=== PATIENT | female | born 1975 | race Caucasian/White ===

== ENCOUNTER 2022-12-03 10:16 | Outpatient (CLI) | payer OTHER, SELFPAY ==
--- NOTE | 2022-12-03 10:28 | ECG_ITS ---
Measurements Intervals [place] Rate: 68 P: 25 MD: 151 QRS: 12 QRSD: 97 T: -4 QT: 397 QTc: 424 Interpretive Statements SINUS RHYTHM NONSPECIFIC T-WAVE ABNORMALITY- ANT/INF LEADS BASELINE ARTIFACT- I, III, AVR, AVL, AVF, V1-V6 BORDERLINE ECG NO PREVIOUS ECG AVAILABLE FOR COMPARISON Electronically Signed On 12-03-2022 10:44:17 CDT by Paul Singleton D.O.
[2022-12-03 10:45] LABS: Hematocrit 43.4 % (37.0-47.0); Hemoglobin 14.2 g/dL (12.0-15.0)
[2022-12-03 11:01] LABS: Anion Gap 9 mmol/L (8-16); Blood Urea Nitrogen 13 mg/dL (7-17); Calcium 9.2 mg/dL (8.4-10.2); Carbon Dioxide 30 mmol/L (22-30); Chloride 99 mmol/L (98-107); Estimated Glomerular Filt Rate > 60; Glucose 103 mg/dL (65-110); Potassium 3.5 mmol/L (3.4-5.0); Sodium 138 mmol/L (137-145)
== END 2022-12-03 10:17 | disposition home or self-care (01) ==
PROVIDERS: Anesthesiology; PCP Family Medicine; Visit Provider Obstetrics & Gynecology Gynecology
DX: Z01.812 Encounter for preprocedural laboratory examination (principal); Z01.810 Encounter for preprocedural cardiovascular examination; D25.9 Leiomyoma of uterus, unspecified; I10 Essential (primary) hypertension; T50.2X5A Adverse effect of carbonic-anhydrase inhibitors, benzothiadiazides and other diuretics, initial encounter; R94.31 Abnormal electrocardiogram [ECG] [EKG]
CPT/HCPCS: 36415; 80048; 85014; 85018; 86850; 86900; 86901; 93005

== ENCOUNTER 2022-12-07 10:21 | Inpatient (IN) | payer OTHER, SELFPAY ==
[2022-11-27 16:11] VITALS: BMI 41.5
--- NOTE | 2022-11-27 16:49 | PC.NURSE ---
Report to the Outpatient Waiting Room, entrance under the green pavilion located off [facility], at 0600 on 12-07-22. Planned Procedure Time: 0730. Time changes happen often and if your time is changed the preop area will call you the afternoon before. - You and your visitor will be asked to self-screen and do not enter if you have any COVID symptoms. - A mask is optional within the hospital at this time. Patients may have clear liquids (water, carbonated beverages, clear teas, apple juice) until 3 hours prior to surgery with a maximum of 20 ounces. 0430 - No food from midnight until time of surgery - Infants may have breast milk until 4 hours before surgery, infant formula 6 hours prior to surgery. - Children will be allowed to drink immediately following surgery. If applicable, please bring a bottle or sippy cup to assist with drinking. Juice, water, soda, and popsicles are readily available. For infants on formula, please bring formula the day of surgery. Pacifiers are allowed. Take the following medications with a SIP of water the morning of surgery: levothyroxine DO NOT STOP ANY OF YOUR OTHER PRESCRIPTION MEDICATIONS PRIOR TO SURGERY ?EXCEPT THE FOLLOWING Medications to discontinue per physician: vitamins and supplements; Meloxicam per Dr. Marcos Date to take last dose: 12-04-22 Please no make-up, nail khmer, hairspray, perfume, deodorant, or body powder the day of surgery. No jewelry (including any body piercings) or valuables the day of surgery, leave them at home. Please take a shower or bath the night before, or the morning of, surgery with an antibacterial soap. Wear comfortable, loose fitting clothing. Children are encouraged to wear pajamas. - Jewelry must be removed prior to entering the operating room. Rings and piercings that are not removed may be cut off. - The hospital will not accept responsibility for valuables. - Please leave all valuables, including medications, at home the day of surgery. If you are going home after surgery, a licensed personal driver must drive you home. - NO public transportation without another adult if you receive anesthesia. - We recommend that an adult stay with you for 24 hours following discharge. - We also recommend that you do not drive, make important decision, drink alcoholic beverages, or take any drugs that were not prescribed by your health care provider for at least 24 hours after your discharge time. For Pediatric surgeries, we recommend two adults accompany the child home. Follow any additional instructions given to you from your surgeon. If you or anyone in your household have experienced Covid symptoms in the past week, please notify your surgeon or the nurse liaison at the phone number below for possible testing. Telephone instructions given to Sara Negron and asked if any additional questions and then verbalized understanding. Patient advised to call surgeon office or pre surgery nurse liaison [phone] if any additional questions.
[2022-12-07] VITALS (15 sets, daily range): BP systolic 127–148; BP diastolic 73–88; PULSE 51–76; RESP 12–18; TEMP 36.2–37.7; O2SAT 93–100
[2022-12-07] MEDS: KETOROLAC 15 MG/ML VIAL (*BKC) IV PUSH (06:30)
[2022-12-07] MEDS: ACETAMINOPHEN 500 MG TABLET 1000 MG PO (06:30)
[2022-12-07] MEDS: LACTATED RINGERS 1,000 ML 30 ML IV CONT ×3 (06:30→09:49)
--- NOTE | 2022-12-07 07:05 | WPDANESEPPF ---
Anes - Initial Pre Proc Eval Procedure: Operation Date: 12/07/22 07:30 Proposed Procedures p Total Abdominal Hysterectomy with Bilateral Salpingectomy - Amanda Marcos MD Date/Time: 12/07/22 07:05 Surgeon: Amanda Marcos MD Pre Op Diagnosis: Fibroid Uterus Patient Data Age: 47 Gender: F Height: 1.65 m Weight: 113.4 kg Allergies Allergy/AdvReac Type Severity Reaction Status Date / Time No Known Allergies Allergy Verified 11/27/22 15:58 Home Medications Medication Instructions Recorded Confirmed Type atorvastatin 20 mg tablet 20 mg PO DAILY 11/27/22 11/27/22 History cholecalciferol (vitamin D3) 100 100 mcg PO DAILY 11/27/22 11/27/22 History mcg (4,000 unit) capsule ferrous sulfate 325 mg (65 mg 325 mg PO DAILY 11/27/22 11/27/22 History iron) tablet hydrochlorothiazide 25 mg tablet 25 mg PO DAILY 11/27/22 11/27/22 History levothyroxine 175 mcg tablet 175 mcg PO DAILY 11/27/22 11/27/22 History meloxicam 15 mg tablet 15 mg PO DAILY PRN Pain, Mild 11/27/22 11/27/22 History metoprolol succinate 25 mg 12.5 mg PO DAILY 11/27/22 11/27/22 History tablet,extended release 24 hr Patient hx anesthesia problems: none Family hx anesthesia problems: none Results Review: All pre-operative results and documents have been reviewed as part of the pre-operative evaluation. [facility] Past Medical History Medical History (Updated 12/07/22 @ 07:05 by David Ernst MD) Hypothyroidism Morbid obesity Social History Social History Smoking packs per day: 1 Smoking cigarettes per day: 20.0 Years smoked: 10 Smoking pack-years: 10.00 Smoking status: Former smoker Tobacco type: cigarettes Second hand tobacco smoke exposure: No Smoking end date: 03/08/09 Alcohol intake: current Drinks per week: 7 Alcohol use details: glass of wine each night Substance use: never Substance use type: does not use Living arrangements: with family Spiritual care concerns: No Anes - Eval Final PreProcedure Day of Procedure 12/07/22 07:05 Patient weight: morbidly obese Heart: regular rate and rhythm Lungs: clear to auscultation Airway: Mallampati scale class II Neurological: alert and oriented Last oral intake: >/= 8 hours ASA classification: III Emergent: no Anesthetic plan: proceed Anesthesia type and monitoring: general ETT and standard monitoring Results Review: All pre-operative results and documents have been reviewed as part of the pre-operative evaluation. Informed Consent: The patient's anesthetic plan and its attendant risks and benefits were discussed with the patient/family/POA. Questions were solicited and answers provided to the satisfaction of the patient/family/POA.
--- NOTE | 2022-12-07 07:16 | WPDHPUPDATE1 ---
History and Physical Update Update Date/Time: 12/07/22 07:16 History and Physical has been reviewed, including an updated exam of the patient. There are NO changes in the patient's condition. Risks, benefits, and alternatives have been discussed and questions answered. Patient agrees to proceed with procedure.
--- NOTE | 2022-12-07 07:16 | PM.IMHP ---
H&P: HPI History of Present Illness Date/Time: 12/07/22 07:16 Chief Complaint: Fibroid uterus Narrative: The patient is a 47-year-old who presented for her annual exam in September was found to have a firm mass at the umbilicus. Pelvic ultrasound revealed uterine fibroids. The patient has had minimal symptoms over time. Her cycles are normal. She does complain of abdominal pelvic pressure. Once the mass was pointed out to the patient she does report more symptoms with pressure. She has elected to proceed with total abdominal hysterectomy and bilateral salpingectomy. Risks of infection, bleeding, injury to internal organs (bowel, bladder, ureters, ovaries), DVT, and anesthesia are reviewed. Patient voices understanding and agrees to proceed. Review of Systems Review of Systems: not repeated day of surgery; patient states no changes in status PMFSH Past Medical History Medical History (Updated 12/07/22 @ 07:20 by Amanda Marcos MD) HTN (hypertension) Hypercholesterolemia Hypothyroidism Morbid obesity BMI is 42.8 (normal spontaneous vaginal delivery) Surgical History Surgical History (Updated 12/07/22 @ 07:19 by Amanda Marcos MD) H/O left knee surgery Repair of meniscus 2021 Social History Social History Smoking packs per day: 1 Smoking cigarettes per day: 20.0 Years smoked: 10 Smoking pack-years: 10.00 Smoking status: Former smoker Tobacco type: cigarettes Second hand tobacco smoke exposure: No Smoking end date: 03/08/09 Alcohol intake: current Drinks per week: 7 Alcohol use details: glass of wine each night Substance use: never Substance use type: does not use Living arrangements: with family Spiritual care concerns: No Meds Home Medications and Allergies Home Medications Medication Instructions Recorded Confirmed Type atorvastatin 20 mg tablet 20 mg PO DAILY 11/27/22 11/27/22 History cholecalciferol (vitamin D3) 100 100 mcg PO DAILY 11/27/22 11/27/22 History mcg (4,000 unit) capsule ferrous sulfate 325 mg (65 mg 325 mg PO DAILY 11/27/22 11/27/22 History iron) tablet hydrochlorothiazide 25 mg tablet 25 mg PO DAILY 11/27/22 11/27/22 History levothyroxine 175 mcg tablet 175 mcg PO DAILY 11/27/22 11/27/22 History meloxicam 15 mg tablet 15 mg PO DAILY PRN Pain, Mild 11/27/22 11/27/22 History metoprolol succinate 25 mg 12.5 mg PO DAILY 11/27/22 11/27/22 History tablet,extended release 24 hr Allergies Allergy/AdvReac Type Severity Reaction Status Date / Time No Known Allergies Allergy Verified 12/07/22 07:20 Exam Const: General: healthy appearing and alert Orientation/consciousness: patient oriented x3 Resp: Effort & Inspection: normal respiratory effort GI: GI Palp: Yes Soft to palpation, No Tenderness to palpation present (GI) and Yes Other GI palpation findings present (Mass filling the lower half of the abdomen into the pelvis, firm) : External Female Exam: normal external appearance Speculum Exam - Vagina: normal appearance of the vagina and normal vaginal discharge Speculum Exam - Cervix: normal appearance of the cervix Bimanual exam- vagina & uterus: enlarged (Approximately 20 week size, globular, firm) Bimanual Exam- Adnexa, other: No adnexal tenderness Neuro: General: patient oriented x3 Assessment and Plan Assessment and plan (1) Fibroid uterus: Code(s): D25.9 - Leiomyoma of uterus, unspecified Status: Acute Plan Plan to proceed with total abdominal hysterectomy with bilateral salpingectomy
[2022-12-07] MEDS: ceFAZolin 2 GM/D5W 50 ML 2 GM/50 ML BAG IVPB (07:26)
--- NOTE | 2022-12-07 09:11 | W.PM.PROC2 ---
Procedure Note - Detailed Date of Procedure 12/07/22 Pre-op Diagnosis Fibroid Uterus Post-op Diagnosis Same Procedure Performed Total abdominal hysterectomy with bilateral salpingectomy Surgeon Amanda Marcos MD Anesthesia General Findings Abdominal examination under anesthesia reveals the uterus to be just above the umbilicus and filling the entire lower abdomen hip to hip. Intra-abdominal findings reveal a markedly enlarged uterus with fibroids, normal-appearing tubes, normal-appearing ovaries. Description of Procedure The patient is taken to the operating room and placed under anesthesia in the dorsal supine position. She was prepped and draped in usual sterile fashion. Intra-abdominal exam was performed and due to the exam, decision was made for a vertical skin incision. A vertical skin incision was made from the umbilicus to symphysis pubis with a scalpel and carried down to the underlying layer of fascia which was nicked in the midline. The fascial incision was extended with Spence scissors superiorly and inferior. The Ochsner was used to tent the fascia laterally and the rectus muscles are off using Metzenbaum scissors. The peritoneum was tented and entered with Metzenbaum scissors and the incision was extended laterally using blunt traction. The abdomen and pelvis are explored with the above-stated findings. The Iam is placed and the bowel packed away using moist laparotomy sponges. The distal tissue was retracted with a medium [place]. The uterus is grasped on the cornua with large peons. The round ligaments were doubly ligated with 0 Vicryl, transected, and the anterior leaf of the broad ligament incised meeting in the midline. The bladder was dissected off using a sponge stick. The [place] was replaced to retract the bladder. The utero-ovarian ligaments are isolated and a window created in the posterior leaf of the broad ligament. The pedicle was doubly clamped, transected, and suture ligated with 0 Vicryl. The uterine vessels are serially clamped, transected, and suture ligated with 0 Vicryl. The cardinal and uterosacral ligaments are serially clamped, transected, and suture ligated with 0 Vicryl. The uterosacral ligaments were tagged for future use. The vaginal cuff was entered anteriorly with the scalpel. The vaginal cuff was grasped with long Allis clamps as the specimen is amputated. The vaginal cuff was closed using 0 Vicryl in a running locked fashion incorporating the angles to the previously tagged ipsilateral uterosacral ligaments. The right angle and a bladder flap arm bleeding requiring 2 sutures 0 Vicryl. The right tube was then grasped with a Duyen, mesosalpinx is clamped with a minimally curved Z clamp, and the tube excised. The pedicles tied off using 0 Vicryl in a Irvin stitch. The identical procedure was performed on the left side. There is also a bleeding vessel at the left tubal site. This is suture ligated with a [id number]-az-[id number] suture of Vicryl. Good hemostasis is then a noted. Pelvis is then irrigated all pedicles inspected. Good hemostasis is noted at all pedicles and the vaginal cuff. The hematuria was placed between the vaginal cuff and the bladder flap. Instruments and sponges were then removed. The fascial edges were grasped with Ochsner bilaterally. The fascial incision was closed using 0 PDS in a running fashion. The subcutaneous tissues were irrigated and made hemostatic using Bovie cautery. The skin is closed using nakita. Sterile bandage was applied. Sponge, needle, and instrument counts are correct per the OR staff. Patient is awakened from anesthesia and taken to recovery in stable condition. Estimated Blood Loss 800 Drains Yes (Burns catheter) Packing No Pathology Yes (Uterus and bilateral tubes) Complications No immediate complications Condition Stable Disposition PACU
--- NOTE | 2022-12-07 09:19 | PM.DS ---
DS: Admitting Diagnosis Discharge Date 12/09/22 Admitting Diagnosis Fibroid uterus DS: Discharge Diagnosis Discharge Diagnosis (1) Status post total abdominal hysterectomy: Code(s): Z90.710 - Acquired absence of both cervix and uterus Status: Acute DS: Summary Hospital Course Hospital Course: At the time of discharge, the patient is tolerating regular diet, voiding, and ambulating. Pain is well controlled. Status at Discharge Functional status at discharge: independent ambulation Overall status at discharge: patient is progressing back to baseline Time Spent with Patient Time attestation: Total time spent providing and/or coordinating discharge services: DS: Data Data Completed and Pending Pending studies at discharge: Pending at discharge 12/07/22 07:58 Surgical [PTH] Routine Discharge Plan Discharge Attending physician on discharge: Amanda Marcos Discharging Clinician: Kavitha Welch Anticipated Discharge Date/Time: 12/09/22 08:10 Patient Disposition: Home, Self-Care Activity: may shower Diet: as tolerated Wound Care Instructions: follow printed instructions Patient Instructions: Hysterectomy (DC), Pain Management After Surgery (DC) Stand Alone Forms: General Discharge Instructions Follow-up/Referrals: Amanda Marcos MD [Physician] - Call for Appointment (Call to move the appointment to 10 days postop) Discharge Medications: New hydrocodone-acetaminophen 5-325 mg Tablet 1 tablet PO Q3H PRN (Reason: Pain Rated 5 Or Less) Qty: 15 0RF ibuprofen 600 mg tablet 600 mg PO Q6H PRN (Reason: Cramping) Qty: 20 0RF Continued atorvastatin 20 mg tablet 20 mg PO DAILY Rx Instructions: Patient takes HS hydrochlorothiazide 25 mg tablet 25 mg PO DAILY Rx Instructions: patient takes in the evening levothyroxine 175 mcg tablet 175 mcg PO DAILY meloxicam 15 mg tablet 15 mg PO DAILY PRN (Reason: Pain, Mild) metoprolol succinate 25 mg tablet extended release 24 hr 12.5 mg PO DAILY Rx Instructions: patient takes in the evening ferrous sulfate 325 mg (65 mg iron) Tablet 325 mg PO DAILY Rx Instructions: patient takes in the evening cholecalciferol (vitamin D3) 100 mcg (4,000 unit) Capsule 100 mcg PO DAILY Rx Instructions: patient takes in the evening Date of admission: 12/07/22 10:21 Primary Care Provider: SabinaKezia Admitting Provider: Amanda Marcos Attending physician on admission: Kavitha Welch Condition: Stable
[2022-12-07] MEDS: fentaNYL CITRATE INJ (*CRX) 100 MCG/2 ML VIAL 25 MCG IV PUSH ×8 (09:27→10:02)
--- NOTE | 2022-12-07 10:30 | PC.NURSE ---
This patient, Geri Negron, was received from PACU on 12/07/22 at 1030. Patient/family oriented to unit policies and routines
[2022-12-07] MEDS: FENTANYL 600MCG/NS30MLPCA(*CRX 600 MCG/30 ML PCA.VIAL IV CONT (11:40)
[2022-12-07] MEDS: DEXTROSE 5%/LACTATED RINGERS 1,000 ML 125 ML IV CONT (11:40)
[2022-12-07] MEDS: KETOROLAC 30 MG/ML VIAL (*BKC) IV PUSH ×2 (17:06→23:19)
[2022-12-07] MEDS: HYDROcodone/acetaminophen (*CRX) 10-325 MG TABLET 1 TAB PO ×2 (18:42→21:39)
[2022-12-07] MEDS: SIMETHICONE 80 MG TAB.CHEW PO (21:18)
[2022-12-08] MEDS: HYDROcodone/acetaminophen (*CRX) 10-325 MG TABLET 1 TAB PO ×2 (03:29→09:11)
[2022-12-08 03:30] VITALS: BP 127/83; PULSE 59; RESP 16; TEMP 36.4; O2SAT 98
[2022-12-08] MEDS: SIMETHICONE 80 MG TAB.CHEW PO (03:30)
[2022-12-08 04:25] LABS: Basophils Percent Auto 0.2 % (0.2-1.2); Eosinophils Percent Auto 0.1 % (0-4.4); Hematocrit 34.8 % (37.0-47.0); Hemoglobin 11.5 g/dL (12.0-15.0); Immature Granulocyte Absolute 0.07 K/mm3 (0.00-0.031); Immature Granulocyte Percent A 0.4 % (0-0.5); Lymphocytes Absolute Auto 1.62 K/mm3 (0.9-3.2); Lymphocytes Percent Auto 9.8 % (18.3-44.2); Mean Corpuscular Hemoglobin 30.3 pg (26-34); Mean Corpuscular Volume 91.8 fl (80-100); Mean Platelet Volume 12.6 fl (7.4-10.4); Monocytes Absolute Auto 1.3 K/mm3 (0.1-0.6); Monocytes Percent Auto 7.9 % (2.6-8.5); Neutrophils Absolute Auto 13.5 K/mm3 (1.3-6.7); Neutrophils Percent Auto 81.6 % (45.5-73.1); Platelet Count Result 170 k/mm3 (150-375); Red Blood Count 3.79 M/mm3 (4.2-5.4); Red Cell Distribution Width 13.2 % (11.5-14.5); White Blood Count 16.5 K/mm3 (4.5-10.0)
[2022-12-08] MEDS: KETOROLAC 30 MG/ML VIAL (*BKC) IV PUSH (05:39)
--- NOTE | 2022-12-08 07:58 | PM.GYNPNOP ---
JUVENILE OFFICER - A/P Postoperative Procedures: Procedures Operation Date: 12/07/22 07:30 Actual Procedure Side Surgeon p Total Abdominal Hysterectomy with Bilateral Salpingectomy Not Applicable Amanda Marcos MD Postoperative day: 1 Postoperative status: doing well Postoperative plan: routine post-op care Time Spent With Patient Time: Total time spent is greater than 50% in coordination of care (as documented) at patient's floor/unit and/or counseling patient: Time with patient: less than 15 minutes JUVENILE OFFICER- PN:Subj Post-Op Subjective Date/time seen: 12/08/22 07:58 Subjective: patient reports feeling better and pain is well controlled Exam Narrative: inc c/d/i abdomen soft, nt JUVENILE OFFICER - PN: Obj Data Vital Signs Vital Signs: Vital Signs - 24 hr 12/07/22 09:15 12/07/22 09:30 12/07/22 09:45 Temperature 98.7 F Pulse Rate 64 51 L 56 L Respiratory Rate 16 12 12 Blood Pressure 133/76 148/78 H 132/82 Pulse Oximetry 100 100 96 Oxygen Delivery Simple Face Mask Simple Face Mask Room Air Oxygen Flow Rate 8 8 12/07/22 10:00 12/07/22 10:15 12/07/22 11:40 Temperature Pulse Rate 56 L 57 L Respiratory Rate 12 12 16 Blood Pressure 141/75 H 136/76 Pulse Oximetry 93 97 Oxygen Delivery Room Air Room Air Oxygen Flow Rate 12/07/22 10:35 12/07/22 15:00 12/07/22 12:45 Temperature 97.6 F 99.0 F Pulse Rate 53 L 68 Respiratory Rate 16 16 16 Blood Pressure 145/81 H 131/73 Pulse Oximetry 99 98 98 Oxygen Delivery Oxygen Flow Rate 12/07/22 13:50 12/07/22 14:55 12/07/22 18:42 Temperature Pulse Rate Respiratory Rate 18 16 16 Blood Pressure Pulse Oximetry 98 99 98 Oxygen Delivery Oxygen Flow Rate 12/07/22 18:30 12/07/22 23:00 12/08/22 03:30 Temperature 100 F H 98.8 F 97.6 F Pulse Rate 70 63 59 L Respiratory Rate 16 16 16 Blood Pressure 127/79 140/84 127/83 Pulse Oximetry 98 99 98 Oxygen Delivery Oxygen Flow Rate Intake/Output Intake/Output: Intake & Output 12/05/22 12/06/22 12/07/22 12/08/22 23:59 23:59 23:59 23:59 Intake Total 1723.9 1880 Output Total 280 2300 Balance 1443.9 -420 Meds/Results Medications: Active Medications Generic Name Dose Route Start Last Admin Trade Name Freq PRN Reason Stop Dose Admin Hydrocodone Bitart/Acetaminophen 1 tab 12/07/22 10:21 12/08/22 03:29 Hydrocodone/Acetaminophen (*Crx) 10-325 Mg Tablet PO 1 tab Q3H PRN Administration Pain Rated 6 or Greater Hydrocodone Bitart/Acetaminophen 1 tab 12/07/22 10:21 Hydrocodone/Acetaminophen (*Crx) 5-325 Mg Tablet PO Q3H PRN Pain Rated 5 or Less Atorvastatin Calcium 20 mg 12/08/22 09:00 Atorvastatin 20 Mg Tablet PO DAILY [facility] Ferrous Sulfate 325 mg 12/08/22 09:00 Ferrous Sulfate [address] PO DAILY [facility] Hydrochlorothiazide 25 mg 12/08/22 09:00 Hydrochlorothiazide 25 Mg Tablet PO DAILY [facility] Dextrose/Lactated Ringer's 1,000 mls @ 125 mls/hr 12/07/22 10:21 12/07/22 11:40 Dextrose 5%/Lactated Ringers IV CONT 125 mls/hr .Q8H SARATH Administration Fentanyl Citrate 600 mcg in 30 mls @ 0.5 mls/hr 12/07/22 10:12/07/22 18:42 Fentanyl 600 Mcg/Ns 30 Ml Silverware Assembler IV CONT 0 mcg/hr PRN PRN 0 mls/hr OUTREACH WORKER Management Titration Protocol 10 MCG/HR Ibuprofen 600 mg 12/07/22 10:21 Ibuprofen 600 Mg Tablet PO Q6H PRN Cramping Ketorolac Tromethamine 30 mg 12/07/22 10:21 12/08/22 05:39 Ketorolac 30 Mg/Ml Vial (*Bkc) IV PUSH 12/12/22 10:20 30 mg Q6H PRN Administration Pain Rated 4-6 Levothyroxine Sodium 150 mcg 12/08/22 06:30 Levothyroxine Sodium 150 Mcg Tablet PO DAILY@0630 [facility] Levothyroxine Sodium 25 mcg 12/08/22 06:30 Levothyroxine Sodium 25 Mcg Tablet PO DAILY@0630 [facility] Metoprolol Succinate 12.5 mg 12/08/22 09:00 Metoprolol Succinate Ext Rel 12.5 Mg Tabcr PO DAILY [facility] Naloxone HCl 0.1 mg 12/07/22 10:21 Naloxone Hc
[2022-12-08] MEDS: hydroCHLOROthiazide 25 MG TABLET PO (08:01)
[2022-12-08] MEDS: LEVOTHYROXINE SODIUM 150 MCG TABLET PO (08:01)
[2022-12-08] MEDS: LEVOTHYROXINE SODIUM 25 MCG TABLET PO (08:01)
[2022-12-08 08:02] VITALS: PULSE 61
[2022-12-08] MEDS: METOPROLOL SUCCINATE EXT REL 12.5 MG TABCR PO (08:02)
[2022-12-08] MEDS: FERROUS SULFATE 325 MG TABLET DR PO (08:02)
[2022-12-08 08:10] VITALS: BP 130/84; PULSE 55; RESP 18; TEMP 37.3; O2SAT 100
[2022-12-08] MEDS: ATORVASTATIN 20 MG TABLET PO (10:34)
[2022-12-08] MEDS: IBUPROFEN 600 MG TABLET PO ×2 (15:08→21:32)
[2022-12-08] MEDS: HYDROcodone/acetaminophen (*CRX) 5-325 MG TABLET 1 TAB PO ×2 (15:08→21:32)
[2022-12-08 15:32] VITALS: BP 121/73; PULSE 86; RESP 18; TEMP 36.9; O2SAT 100
[2022-12-08 20:17] VITALS: BP 136/72; PULSE 63; RESP 18; TEMP 36.8; O2SAT 99
--- NOTE | 2022-12-09 07:30 | PC.NURSE ---
PT introductions made and plan of care discussed per post op sailing instructor surgery , pain management, daily care activities and pending discharge to home. PT sole recipient of such instructions and no barriers to learning identified at this time. PT received such instructions per one to one discussion, daily care activities and demonstrations this shift. PT verbalized understanding of such care.
[2022-12-09 07:36] VITALS: BP 121/76; PULSE 69; RESP 16; TEMP 36.7; O2SAT 100
[2022-12-09] MEDS: HYDROcodone/acetaminophen (*CRX) 5-325 MG TABLET 1 TAB PO (07:52)
[2022-12-09] MEDS: LEVOTHYROXINE SODIUM 150 MCG TABLET PO (07:52)
[2022-12-09] MEDS: ATORVASTATIN 20 MG TABLET PO (07:52)
[2022-12-09] MEDS: LEVOTHYROXINE SODIUM 25 MCG TABLET PO (07:52)
[2022-12-09] MEDS: hydroCHLOROthiazide 25 MG TABLET PO (07:53)
[2022-12-09] MEDS: FERROUS SULFATE 325 MG TABLET DR PO (07:53)
[2022-12-09] MEDS: SIMETHICONE 80 MG TAB.CHEW PO (07:53)
--- NOTE | 2022-12-09 08:08 | WPDPN ---
Progress Note: A&P Assessment and Plan (1) Status post total abdominal hysterectomy: Code(s): Z90.710 - Acquired absence of both cervix and uterus Status: Acute Plan DC home today. Subjective Date/time seen: 12/09/22 0745 Interval history: POD 2 from abdominal hysterectomy with vertical skin incision. Doing well. Ambulating in room. Up to bathroom. Denies issues with urination. Tolerating po food and fluid. Passing flatus. Pain well controlled wiht po medication. Review of Systems Review of Systems: All systems reviewed & are unremarkable except as noted in HPI and below Exam Const: General: cooperative, no acute distress and awake Orientation/consciousness: patient oriented x3 Limitations: no limitations Resp: Effort & Inspection: normal respiratory effort and able to speak in complete sentences Auscultation: clear to auscultation bilaterally Cardio: Rate: regular rate Peripheral pulses: Peripheral pulses 2+ throughout GI: Inspection: normal to inspection Auscultation: normal bowel sounds : General: Yes bladder normal to palpation Speculum Exam - Vagina: vaginal bleeding (scant) Bimanual exam- vagina & uterus: bladder normal to palpation Skin: General skin exam: normal color Other: Incision C/D/I. [place] in place. Slight drainage overnight of dark red/brown. No active drainage or discharge. Neuro: General: patient oriented x3 Cognition (Neuro): normal cognition Speech: normal speech Extrem: General: normal to inspection Psych: Appearance: grossly normal Mental Status: mental status grossly normal Speech and movement: Normal speech and movement present Affect: normal affect Attitude: cooperative Thought process: Normal thought process present Objective Data Vital Signs Vital Signs: Vital Signs - 24 hr 12/08/22 08:10 12/08/22 15:32 12/08/22 15:32 Temperature 99.1 F 98.4 F 98.4 F Pulse Rate 55 L 86 86 Respiratory Rate 18 18 18 Blood Pressure 130/84 121/73 121/73 Pulse Oximetry 100 100 100 Oxygen Delivery Room Air 12/08/22 20:17 12/09/22 07:36 Temperature 98.2 F 98.1 F Pulse Rate 63 69 Respiratory Rate 18 16 Blood Pressure 136/72 121/76 Pulse Oximetry 99 100 Oxygen Delivery Intake/Output Intake/Output: Intake & Output 12/06/22 12/07/22 12/08/22 12/09/22 23:59 23:59 23:59 23:59 Intake Total 1723.9 2380 Output Total 280 2700 Balance 1443.9 -320 Meds/Results Medications: Active Medications Generic Name Dose Route Start Last Admin Trade Name Freq PRN Reason Stop Dose Admin Hydrocodone Bitart/Acetaminophen 1 tab 12/07/22 10:21 12/08/22 09:11 Hydrocodone/Acetaminophen (*Crx) 10-325 Mg Tablet PO 1 tab Q3H PRN Administration Pain Rated 6 or Greater Hydrocodone Bitart/Acetaminophen 1 tab 12/07/22 10:21 12/09/22 07:52 Hydrocodone/Acetaminophen (*Crx) 5-325 Mg Tablet PO 1 tab Q3H PRN Administration Pain Rated 5 or Less Atorvastatin Calcium 20 mg 12/08/22 09:00 12/09/22 07:52 Atorvastatin 20 Mg Tablet PO 20 mg DAILY SARATH Administration Ferrous Sulfate 325 mg 12/08/22 09:00 12/09/22 07:53 Ferrous Sulfate [address] PO 325 mg DAILY SARATH Administration Hydrochlorothiazide 25 mg 12/08/22 09:00 12/09/22 07:53 Hydrochlorothiazide 25 Mg Tablet PO 25 mg DAILY SARATH Administration Ibuprofen 600 mg 12/07/22 10:21 12/08/22 21:32 Ibuprofen 600 Mg Tablet PO 600 mg Q6H PRN Administration Cramping Ketorolac Tromethamine 30 mg 12/07/22 10:21 12/08/22 05:39 Ketorolac 30 Mg/Ml Vial (*Bkc) IV PUSH 12/12/22 10:20 30 mg Q6H PRN Administration Pain Rated 4-6 Levothyroxine Sodium 150 mcg 12/08/22 06:30 12/09/22 07:52 Levothyroxine Sodium 150 Mcg Tablet PO 150 mcg DAILY@0630 SARATH Administration Levothyroxine Sodium 25 mcg 12/08/22 06:30 12/09/22 07:52 Levothyroxine Sodium 25 Mcg Tablet PO 25 mcg DAILY@0630 SARATH Administration Metoprolol Succ
[2022-12-09 09:00] VITALS: PULSE 69
[2022-12-09] MEDS: METOPROLOL SUCCINATE EXT REL 12.5 MG TABCR PO (09:00)
--- NOTE | 2022-12-09 09:30 | PC.NURSE ---
PT received discharge instructions and was given staple remover and steri strips. Abdominal binder applied. Accompanied pt and spouse via ambulation to waiting car and follow up appts confirmed.
[2022-12-09 09:50] VITALS: PULSE 69; RESP 16; O2SAT 100
--- NOTE | 2022-12-09 10:14 | PC.NURSE ---
On 12/09/22, the student, Bibi Wayne, provided care and completed [facility] documentation on this patient. I have reviewed the student's documentation and agree with the findings.
== END 2022-12-09 09:30 | disposition home or self-care (01) | DRG 742 ==
LOC: ANHOB2 10:24
PROVIDERS: Admitting Provider Obstetrics & Gynecology Gynecology; PCP Family Medicine; Visit Provider Advanced Practice Midwife
PROC: 0UT94ZZ Resection of Uterus, Percutaneous Endoscopic Approach (ICD-10-PCS; principal; 2022-12-07 07:30)
DX: D25.9 Leiomyoma of uterus, unspecified (principal); Z68.41 Body mass index [BMI] 40.0-44.9, adult; I10 Essential (primary) hypertension; E78.00 Pure hypercholesterolemia, unspecified; E03.9 Hypothyroidism, unspecified; E66.01 Morbid (severe) obesity due to excess calories; Z87.891 Personal history of nicotine dependence
CPT/HCPCS: 36415; 85025; 86850; 86900; 86901; 88307; A9270; J0690; J1100; J1170; J1200; J1885; J2250; J2405; J2704; J2710; J3010; J7120; J7121